=== PATIENT | female | born 1945 | race American Indian/Alaskan Native ===

== ENCOUNTER 2019-01-04 13:24 | Outpatient (CLI) | payer MEDICARE ==
--- NOTE | 2019-01-04 14:45 | Mammography Report ---
BONE DEXA:01/04/19 13:24:00 CLINICAL: Postmenopausal osteoporosis. COMPARISON: 04/22/16 TECHNIQUE: Two site bone DEXA performed on an Hologic scanner. FINDINGS: The average BMD of the lumbar spine L1-L4 is 0.907g/cm squared with a T-score of -2.2 and a Z-score of osteophyte 3. This compares to 0.843g/cm squared on the last exam and represents a +7.6% change from the previous baseline. The average BMD of the left hip is 0.868g/cm squared with a T-score of -1.0 and a Z-score of +0.2. This compares to 0.838g/cm squared on the last exam and represents a +3.6% change from the previous baseline. The lateral neck BMD is 0.767g/cm squared with a T score of -1.3 and a Z score of +0.2. IMPRESSION: 1. WHO classification: Osteopenia with increased fracture risk based on both spine and left femoral neck measurements. 2. A moderate improvement in both spine and left hip BMD compared to the last exam. RECOMMENDATION: Clinical correlation and routine screening. DEFINITIONS: BMD = Bone Mineral Density T-score = BMD related to mean peak bone mass of young adult (mean expressed in Standard Deviation) Z-score = Age matched BMD expressed in SD World Health Organization (WHO) Diagnostic Criteria Normal T-score > -1 SD Osteopenia T-score between -1 and -2.4 SD Osteoporosis T-score -2.5 SD or below NOTE: BMD is not the only risk factor for fracture; also consider factors such as the patient's age, risk of falling, previous osteoporotic fracture, family history of osteoporotic fractures, current smoker, and low body weight. Z-scores are not calculated if >80 years of age.
== END 2019-01-04 13:25 | disposition home or self-care (01) ==
LOC: SPVWC 13:24
PROVIDERS: ATTEND Internal Medicine
DX: M85.88 Other specified disorders of bone density and structure, other site (principal); M81.0 Age-related osteoporosis without current pathological fracture; Z78.0 Asymptomatic menopausal state
CPT/HCPCS: 77080

== ENCOUNTER 2019-01-29 10:59 | Outpatient (CLI) | payer MEDICARE ==
--- NOTE | 2019-01-29 12:00 | XRay Report ---
ABDOMINAL SERIES WITH CXR THREE VIEWS: 01/29/19 CLINICAL: Generalized abdominal pain. FINDINGS: Supine upright views demonstrate a normal bowel gas pattern with a large volume of stool throughout the colon and in the rectum.. No distended bowel or air-fluid levels. No pneumoperitoneum. Surgical clips in the right upper quadrant. A left pelvic phlebolith. No mass or suspicious calcifications.The bones and soft tissues are normal. The chest is significant for an irregular left upper lobe opacity which is suspicious for a lung nodule.Normal heart and pulmonary vessels. No airspace disease or pleural effusion. IMPRESSION: 1. Negative abdomen with abundant stool throughout the colon. 2. Status post cholecystectomy. 3. Left upper lobe nodular lung opacity. Recommend CT chest without contrast for further evaluation. Spoke to Dr. Rockwell regarding these findings and my recommendation of chest CT on 10/01/18 at 11:56 AM.
== END 2019-01-29 11:00 | disposition home or self-care (01) ==
LOC: SPVIMAG 10:59
PROVIDERS: ATTEND Internal Medicine
DX: R10.84 Generalized abdominal pain (principal); R91.1 Solitary pulmonary nodule; Z90.49 Acquired absence of other specified parts of digestive tract
CPT/HCPCS: 74022